=== PATIENT | female | born 1930 | race Caucasian/White ===

== ENCOUNTER → 2017-11-11 | Outpatient (CLI) | payer OTHER ==
[~2017-11-11] MED LIST: ENAL10TA PO; FURO20TA3 PO; HYDR-3240 PO; RANI150T23 PO
== END | disposition home or self-care (01) ==
LOC: CFH 12:26
PROVIDERS: ATTEND Internal Medicine Cardiovascular Disease
DX: I35.8 Other nonrheumatic aortic valve disorders (principal); I48.91 Unspecified atrial fibrillation; I10 Essential (primary) hypertension; Z95.0 Presence of cardiac pacemaker
CPT/HCPCS: 93306

== ENCOUNTER 2018-05-29 09:51 | Day surgery (SDC) | payer MEDICARE ==
[~2018-05-29] VITALS: Ht 157.5 cm; Wt 70.5 kg
[2018-05-29] MEDS ORDERED: SODIUM CHLORIDE 0.9% 1,000 ML IV SCH (10:27)
[2018-05-29] MEDS ORDERED: VANCOMYCIN PMX 1GM/200ML 200 ML IVPB SCH (10:30)
[2018-05-29 10:33] VITALS: BP 182/96
[2018-05-29 10:44] LABS: BASOPHILS # (AUTO) 0.06 x10^3/uL (0-0.1); BASOPHILS % (AUTO) 1 % (0-1); EOSINOPHILS # (AUTO) 0.31 x10^3/uL (0-0.4); EOSINOPHILS % (AUTO) 6 % (1-7); LYMPHOCYTES # (AUTO) 1.91 x10^3/uL (1-3.4); LYMPHOCYTES % (AUTO) 34 % (22-44); MD NO; MEAN CORPUSCULAR HEMOGLOBIN 31.9 pg (27.0-34.8); MEAN CORPUSCULAR HGB CONC 33.3 g/dL (32.4-35.8); MEAN CORPUSCULAR VOLUME 95.9 fL (80-100); MEAN PLATELET VOLUME 8.2 fL (7.4-10.4); MONOCYTES # (AUTO) 0.42 x10^3/uL (0.2-0.8); MONOCYTES % (AUTO) 8 % (2-9); NEUTROPHILS # (AUTO) 2.85 x10^3/uL (1.8-6.8); NEUTROPHILS % (AUTO) 51 % (42-75); PLATELET COUNT 227 x10^3/uL (130-400); RED BLOOD COUNT 3.72 x10^6/uL (3.82-5.3); RED CELL DISTRIBUTION WIDTH 14.8 % (9.6-15.2)
[2018-05-29] MEDS ORDERED: ASPI-496 PO (10:46)
[2018-05-29] MEDS ORDERED: FURO-93 PO (10:48)
[2018-05-29] MEDS ORDERED: ENAL10TA PO (10:48)
[2018-05-29] MEDS ORDERED: OXYB5TAB7 PO (10:48)
[2018-05-29 10:54] LABS: ALANINE AMINOTRANSFERASE 24 U/L (12-78); ALBUMIN 3.3 g/dL (3.4-5.0); ANION GAP 9 mmol/L (5-15); CALCIUM 9.5 mg/dL (8.5-10.1); CHLORIDE 104 mmol/L (98-107); CREATININE 1.15 mg/dL (0.55-1.02)
[2018-05-29 10:56] LABS: ALKALINE PHOSPHATASE 61 U/L (45-117); BILIRUBIN,TOTAL 0.8 mg/dL (0.2-1.0); TOTAL PROTEIN 7.2 g/dL (6.4-8.2)
[2018-05-29] MEDS ORDERED: LIDOCAINE 1%, 20ML ONE (11:41)
[2018-05-29] MEDS ORDERED: MIDAZOLAM 1 MG/ML, 2ML ONE ×2 (11:41→11:48)
[2018-05-29] MEDS ORDERED: FENTANYL PF 100 MCG/2ML ONE ×2 (11:41→11:48)
[2018-05-29] MEDS ORDERED: CEFAZOLIN 1,000 MG ONE (11:42)
[2018-05-29] MEDS ORDERED: VANCOMYCIN 500 MG ONE (11:48)
[2018-05-29] MEDS ORDERED: VANCOMYCIN PMX 1GM/200ML 0 ML ONE (11:48)
[2018-05-29] MEDS ORDERED: HOLD MEDICATION MC PRN (13:30)
[2018-05-29] MEDS ORDERED: SODIUM CHLORIDE FLUSH 10ML SYR IVF SCH (21:00)
== END 2018-05-29 14:42 | disposition home or self-care (01) ==
LOC: CACL 09:51
PROVIDERS: ATTEND Internal Medicine Cardiovascular Disease
DX: Z45.010 Encounter for checking and testing of cardiac pacemaker pulse generator [battery] (principal); I49.5 Sick sinus syndrome; I48.0 Paroxysmal atrial fibrillation; I10 Essential (primary) hypertension; E78.5 Hyperlipidemia, unspecified; Z88.0 Allergy status to penicillin
CPT/HCPCS: 33228; 36415; 71046; 80053; 85025; 99156; C1785; J0690; J2250; J3010; J3490; J3370